=== PATIENT | female | born 1940 | race Caucasian/White ===

== ENCOUNTER 2021-06-12 13:19 | Outpatient (CLI) | payer MEDICARE, BC | END 2021-06-12 13:20 | disposition home or self-care (01) | LOC: CSHMRI 13:19 | PROVIDERS: ATTEND Internal Medicine Hematology & Oncology | DX: C50.811 Malignant neoplasm of overlapping sites of right female breast (principal); C50.812 Malignant neoplasm of overlapping sites of left female breast; D49.6 Neoplasm of unspecified behavior of brain; Z98.890 Other specified postprocedural states | CPT/HCPCS: 70553; 82565 ==